=== PATIENT | female | born 1975 | race Caucasian/White ===

== ENCOUNTER 2016-03-20 06:00 | Emergency (ER) | payer OTHER ==
[2016-03-20 06:25] VITALS: TEMP 98.2; BMI 26.5
--- NOTE | 2016-03-20 06:49 | EDPRACDOC ---
[id number] Mode of Arrival: Car - History of Present Illness Onset: 12 hours HPI: PT PRESENTS WITH LEFT SIDED CHEST PAIN, LEFT POSTERIOR NECK/SHOULDER PAIN, AND LEFT ARM PAIN. Chest Pain Location: Reports: Left Chest Pain Radiation: Reports: Shoulder (L), Arm (L) Symptoms Occur: Reports: At Rest Cardiac Risk Factors: Reports: Smoker. Denies: Family History, Hyperlipidemia, Hypertension, Diabetes Cardiac History of: Reports: None PE Risk Factors: Reports: None Medications within 24 Hours: Reports: None Pain Description: Reports: Aching Pain Severity: Moderate Pain Worsens With: Reports: Nothing Pain Improves With: Reports: Nothing Associated Signs and Symptoms: Denies: SOB, Palpitations, Diaphoretic, Nausea, Vomiting <Bry Garg - [place] Filed: 03/24/16 07:04> - General Information Chief Complaint: Chest Pain Stated Complaint: LEFT ARM PAIN Time Seen by Provider: 03/20/16 06:39 Home Medications: Home Medications Ketorolac Tromethamine 10 mg PO Q8H PRN #15 tab 09/24/15 Hydrocodone Bit/Acetaminophen [Hydrocodon-Acetaminophen 5-325] 1 tab PO Q4H PRN #14 tab 09/29/15 Prednisone [Deltasone] 20 mg PO BID #10 tablet 09/29/15 Diazepam [Valium] 5 mg PO TID PRN #10 tablet 03/20/16 Allergies/Adverse Reactions: Allergies Allergy/AdvReac Type Severity Reaction Status Date / Time tramadol AdvReac Intermediate Headache Verified 09/29/15 14:07 ED Past Medical History - History Reviewed Yes Nurses notes reviewed and agree except as marked - Patient Medical History Psychological History: Denies: Depression Systemic History: Denies: Cancer Surgical History: Reports: Tonsillectomy, Tonsillectomy/Adnoidectomy (1978), Other (bt) - Social Medical History Smoking Status: Heavy tobacco smoker (5 or more cigarettes/day or daily pipe/ cigar) Lives In: Home <Bry Garg - Last Filed: 03/24/16 07:04> EDM Review of Systems - Review of Systems ROS Negative Except as Marked: Yes All systems reviewed and were negative except as marked Constitutional: negative: Fever Respiratory: Cough, Shortness of Breath Cardiovascular: Chest Pain Gastrointestinal: negative: Nausea, Pain, Vomiting Musculoskeletal: Arm (LEFT ARM ACHING.) <Bry Garg - Last Filed: 03/24/16 07:04> - Physical Exam Last recorded Vital Signs: Last Vital Signs Temp 98.2 F 03/20/16 06:10 Pulse 85 03/20/16 08:14 Resp 20 03/20/16 06:10 BP 139/78 03/20/16 08:14 Pulse Ox 97 03/20/16 08:14 Oxygen Pulse Oxygen Saturation 97 O2 Device Room Air Oxygen Flow Rate Fraction of Inspired Oxygen ( FIO2) <Cristhian Bunch - Last Filed: 03/20/16 09:34> - Physical Exam Constitutional: Alert Oriented to: Time, Person, Place Last recorded Vital Signs: Last Vital Signs Temp 98.2 F 03/20/16 06:10 Pulse 100 03/20/16 06:10 Resp 20 03/20/16 06:10 BP 142/4 L 03/20/16 06:10 Pulse Ox 100 03/20/16 06:10 Oxygen Pulse Oxygen Saturation 100 O2 Device Room Air Oxygen Flow Rate Fraction of Inspired Oxygen ( FIO2) - HEENT Head: negative: Deformity, Laceration Eye Exam: negative: Conjunctival Injection, Pale Conjunctiva Oropharynx: negative: Membranes Dry Nose: negative: Congestion, Discharge Neck: negative: Limited ROM - Respiratory/Cardiovascular Respiratory: Normal - CTA. negative: Accessory Muscle Use, Diminished, Tachypnea Cardiovascular: negative: Bradycardia, Tachycardia, Irregular - GI Auscultation: Normal Palpation: Normal Tenderness: Non tender - Musculoskeletal Back: Other (UPPER LEFT THORACIC MUSCULATURE SPASM.) Extremities: Pedal Pulse (PALPABLE), Radial Pulse (PALPABLE). negative: Calf Tenderness, Pedal Edema - Integumentary Skin: Warm, Dry. negative: Rash - Neurologic Memory Impaired: Normal Motor Function: Normal Mood Description: Anxious Thought: Coherent Perception: Normal <Bry Garg - Last Filed: 03/24/16 07:04> ED Chest Pain Exam - Respiratory/Cardiovascular Chest Palpation: Tender <Bry Garg - Last Filed: 03/24/16 07:04> - Results 03/20/16 06:54 03/20/16 06:54 WBC 7.6 xk/uL (3.8-10.8) 03/20/16 06:54 RBC 4.42 xM/uL (4.20-5.40) 03/20/16 06:54 Hgb 13.4 g/dL (12.0-16.0) 03/20/16 06:54 Hct 38.7 % (36-47) 03/20/16 06:54 MCV 88 fL (81-99) 03/20/16 06:54 MCH 30.3 pg (27-32) 03/20/16 06:54 MCHC 34.6 g/dl (33-36) 03/20/16 06:54 RDW 13.1 % (11.5-14.5) 03/20/16 06:54 Plt Count 245 xk/uL (130-400) 03/20/16 06:54 MPV 9.0 fL (7.4-10.4) 03/20/16 06:54 Neut % (Auto) 46.3 % (45-76) 03/20/16 06:54 Lymph % (Auto) 41.6 % (17-44) 03/20/16 06:54 [place] % (Auto) 6.8 % (3-10) 03/20/16 06:54 Eos % (Auto) 3.9 % (0-5) 03/20/16 06:54 Baso % (Auto) 1.4 % (0-2) 03/20/16 06:54 Absolute Neuts (auto) 3.50 xk/uL (1.7-8.2) 03/20/16 06:54 Absolute Lymphs (auto) 3.12 xk/uL (0.65-4.75) 03/20/16 06:54 PT 10.0 SEC (9.2-11.2) 03/20/16 06:54 INR 1.0 03/20/16 06:54 APTT 28.0 SEC (22-35) 03/20/16 06:54 Sodium 142 mEq/L (137-146) 03/20/16 06:54 Potassium 3.9 mEq/L (3.5-5.1) 03/20/16 06:54 Chloride 104 mEq/L (98-107) 03/20/16 06:54 Carbon Dioxide 28 mMOL/L (22-33) 03/20/16 06:54 Anion Gap 14 mEq/L (8-16) 03/20/16 06:54 BUN 8 MG/DL (7-17) 03/20/16 06:54 Creatinine 0.80 MG/DL (0.52-1.04) 03/20/16 06:54 Estimated GFR (MDRD) > 60 mL/min (>=60) 03/20/16 06:54 Glucose 112 MG/DL (70-99) H 03/20/16 06:54 Calculated Osmolality 272 MOs/Kg (270-290) 03/20/16 06:54 Calcium 9.5 MG/DL (8.4-10.2) 03/20/16 06:54 Total Bilirubin 0.3 MG/DL (0.2-1.3) 03/20/16 06:54 AST 19 IU/L (14-36) 03/20/16 06:54 ALT 31 IU/L (9-52) 03/20/16 06:54 Alkaline Phosphatase 47 IU/L (38-126) 03/20/16 06:54 Creatine Kinase 33 IU/L (30-134) 03/20/16 06:54 Troponin I < 0.01 ng/mL (<.04) 03/20/16 06:54 Total Protein 7.0 G/DL (6.3-8.2) 03/20/16 06:54 Albumin 4.1 G/DL (3.5-5.0) 03/20/16 06:54 Lab Results 03/20/16 03/20/16 03/20/16 06:54 06:54 06:54 WBC 7.6 RBC 4.42 Hgb 13.4 Hct 38.7 MCV 88 MCH 30.3 MCHC 34.6 RDW 13.1 Plt Count 245 MPV 9.0 Neut % (Auto) 46.3 Lymph % (Auto) 41.6 [place] % (Auto) 6.8 Eos % (Auto) 3.9 Baso % (Auto) 1.4 Absolute Neuts (auto) 3.50 Absolute Lymphs (auto) 3.12 PT 10.0 INR 1.0 APTT 28.0 Sodium 142 Potassium 3.9 Chloride 104 Carbon Dioxide 28 Anion Gap 14 BUN 8 Creatinine 0.80 Estimated GFR (MDRD) > 60 Glucose 112 H Calculated Osmolality 272 Calcium 9.5 Total Bilirubin 0.3 AST 19 ALT 31 Alkaline Phosphatase 47 Creatine Kinase 33 Troponin I < 0.01 Total Protein 7.0 Albumin 4.1 Laboratory Results - last 24 hr 03/20/16 03/20/16 03/20/16 06:54 06:54 06:54 WBC 7.6 RBC 4.42 Hgb 13.4 Hct 38.7 MCV 88 MCH 30.3 MCHC 34.6 RDW 13.1 Plt Count 245 MPV 9.0 Neut % (Auto) 46.3 Lymph % (Auto) 41.6 [place] % (Auto) 6.8 Eos % (Auto) 3.9 Baso % (Auto) 1.4 Absolute Neuts (auto) 3.50 Absolute Lymphs (auto) 3.12 PT 10.0 INR 1.0 APTT 28.0 Sodium 142 Potassium 3.9 Chloride 104 Carbon Dioxide 28 Anion Gap 14 BUN 8 Creatinine 0.80 Estimated GFR (MDRD) > 60 Glucose 112 H Calculated Osmolality 272 Calcium 9.5 Total Bilirubin 0.3 AST 19 ALT 31 Alkaline Phosphatase 47 Creatine Kinase 33 Troponin I < 0.01 Total Protein 7.0 Albumin 4.1 Laboratory Results 03/20/16 06:54 03/20/16 06:54 <Cristhian Bunch - Last Filed: 03/20/16 09:34> - Action ASA given in the ED: No - Results 03/20/16 06:54 03/20/16 06:54 <Bry Garg - Last Filed: 03/24/16 07:04> Decision Time to Discharge: 09:35 - Departure Disposition: Home Education/Counseling Given To: Patient Education/Counseling Given Regarding: Diagnosis <Cristhian Bunch - Last Filed: 03/20/16 09:34> <Bry Garg - Last Filed: 03/24/16 07:04> - Departure Condition: Stable Final Diagnosis: Chest pain Qualifiers: Chest pain type: unspecified Qualified Code(s): R07.9 - Chest pain, unspecified Instructions: Chest Pain (ED) Referrals: Stanislaw Moreland MD [Primary Care Provider] - One Week Prescriptions: Diazepam [Valium] 5 mg PO TID PRN #10 tablet PRN Reason: Pain
[2016-03-20 07:04] LABS: AUTOMATED BASOPHIL 1.4 % (0-2); AUTOMATED EOSINOPHIL 3.9 % (0-5); AUTOMATED LYMPH 41.6 % (17-44); AUTOMATED MONOCYTE 6.8 % (3-10); AUTOMATED NEUTROPHIL 46.3 % (45-76)
--- NOTE | 2016-03-20 07:09 | DIRPT ---
CLINICAL DATA: 40-year-old female with chest pain EXAM: CHEST 2 VIEW COMPARISON: Radiographs dated 06/13/2014 FINDINGS: The heart size and mediastinal contours are within normal limits. Both lungs are clear. The visualized skeletal structures are unremarkable. IMPRESSION: No active cardiopulmonary disease. Electronically Signed By: Prabhu Rivera M.D. On: 03/20/2016 07:06
[2016-03-20 07:17] LABS: BLOOD UREA NITROGEN 8 MG/DL (7-17); CALCIUM 9.5 MG/DL (8.4-10.2); CALCULATED OSMOLALITY 272 MOs/Kg (270-290); CHLORIDE 104 mEq/L (98-107); CPK TOTAL WITH POSSIBLE MB 33 IU/L (30-134); GLUCOSE 112 MG/DL (70-99); SODIUM LEVEL 142 mEq/L (137-146)
[2016-03-20] MEDS ORDERED: KETOROLAC TROMETH 30 MG/ML VIAL IV ONE (08:13)
[2016-03-20 10:05] VITALS: BP 110/72; PULSE 85
== END 2016-03-20 10:09 | disposition home or self-care (01) ==
LOC: ED 06:00
DX: R07.9 Chest pain, unspecified (principal)
CPT/HCPCS: 36415; 71020; 80053; 82550; 84484; 85025; 85610; 85730; 93005; 96374; 99284; J1885